=== PATIENT | female | born 1980 | race Caucasian/White ===

== ENCOUNTER 2017-11-08 12:26 | Emergency (ER) | payer BC ==
[2017-11-08 14:00] VITALS: BP 124/80
--- NOTE | 2017-11-08 14:31 | UC ---
Respiratory Complaint HPI - HPI Summary HPI Summary: 4 DAYS OF COUGH, CONGESTION GETTING WORSE. HAS ST AND PAIN WITH SWALLOWING. [place] SINCE YESTERDAY. FEELING TIRED AND ACHY. NO FEVER, N/V/D. H/O MS ON TECFIDERA. - History of Current Complaint Chief Complaint: UCRespiratory Stated Complaint: RESP ISSUE Time Seen by Provider: 11/08/17 14:13 Hx Obtained From: Patient Hx Last Menstrual Period: 10/13/2017 Onset/Duration: Gradual Onset, Lasting Days, Still Present Timing: Constant Severity Initially: Moderate Severity Currently: Moderate Pain Intensity: 3 Pain Scale Used: 0-10 Numeric Character: Cough: Productive - INTERMITTENTLY PRODUCTIVE Aggravating Factors: Nothing Alleviating Factors: Nothing Associated Signs And Symptoms: Positive: URI, Nasal Congestion. Negative: Dyspnea, Fever, Chills, Wheezing - Allergies/Home Medications Allergies/Adverse Reactions: Allergies Allergy/AdvReac Type Severity Reaction Status Date / Time prochlorperazine Allergy See Comment Verified 11/08/17 13:52 [From Compazine] Sulfa (Sulfonamide Allergy Hives Verified 11/08/17 13:52 Antibiotics) sulfamethoxazole Allergy Hives Verified 11/08/17 13:52 [From Septra] trimethobenzamide Allergy See Comment Verified 11/08/17 13:52 [From Tigan] trimethoprim [From Septra] Allergy Hives Verified 11/08/17 13:52 Home Medications: Home Medications diphenhydrAMINE HCl [Benadryl Allergy] 50 mg PO Q8HR PRN 11/08/17 [History Confirmed 11/08/17] guaiFENesin [Mucinex] 600 mg PO Q12HR 11/08/17 [History Confirmed 11/08/17] PMH/Surg Hx/FS Hx/Imm Hx Other Neurological History: MULTIPLE SCLEROSIS - Surgical History Surgical History: Yes Surgery Procedure, Year, and Place: 1995 BIG TOE TO REMOVE FOREIGN OBJECT, 2005 2 MOLES REMOVED FROM BACK, 2006 CYST REMOVED FROM GROIN, 09/29 LESION ON SCALP REMOVED OFFICE PROCEDURE - Family History Known Family History: Positive: Hypertension - Social History Alcohol Use: Weekly Alcohol Amount: 1-2 week Substance Use Type: None Smoking Status (MU): Current Some Day Smoker Type: Cigarettes Amount Used/How Often: 1 pack per month now Have You Smoked in the Last Year: Yes Household Exposure Type: Cigarettes - Immunization History Most Recent Influenza Vaccination: 2012 Most Recent Tetanus Shot: >5 yrs Review of Systems Constitutional: Fatigue ENT: Sore Throat, Nasal Discharge Respiratory: Cough Cardiovascular: Negative Gastrointestinal: Negative Musculoskeletal: Myalgia All Other Systems Reviewed And Are Negative: Yes Physical Exam Triage Information Reviewed: Yes Appearance: No Pain Distress, Well-Nourished, Ill-Appearing - APPEARS MILDLY ILL AND FATIGUED Vital Signs: Initial Vital Signs Temp 98.6 F 11/08/17 13:55 Pulse 103 11/08/17 13:55 Resp 18 11/08/17 13:55 BP 124/80 11/08/17 13:55 Pulse Ox 99 11/08/17 13:55 Vital Signs Reviewed: Yes Eyes: Positive: Conjunctiva Clear ENT: Positive: Hearing grossly normal, Pharyngeal erythema, Other - RIGHT TM DULL, ERYTHEMATOUS WITH SOME DEBRIS. LEFT TM NORMAL Neck: Positive: Supple, Nontender, No Lymphadenopathy Respiratory Exam: Normal Cardiovascular: Positive: Tachycardia Abdomen Description: Positive: Soft Musculoskeletal: Positive: No Edema Neurological: Positive: Alert Psychological: Positive: Age Appropriate Behavior Skin: Negative: rashes UC Diagnostic Evaluation - Laboratory O2 Sat by Pulse Oximetry: 99 Respiratory Course/Dx - Differential Dx/Diagnosis Provider Diagnoses: RIGHT AOM Discharge - Discharge Plan Condition: Stable Disposition: HOME Prescriptions: Amoxicillin PO (*) [Amoxicillin 500 MG CAP*] 1,000 mg PO Q12H #40 cap Benzonatate CAP* [Tessalon CAP*] 1 - 2 cap PO TID PRN #30 cap PRN Reason: Cough Patient Education Materials: Ear Infection (ED), Upper Respiratory Infection ( ED) Referrals: Galina Avendaño MD [Primary Care Provider] - If Needed Additional Instructions: STREP AND FLU BOTH NEGATIVE. ANTIBIOTICS FOR EAR INFECTION. FOLLOW-UP IF NOT IMPROVING EXPECTED.
== END 2017-11-08 15:10 | disposition home or self-care (01) ==
LOC: UCEAST 12:26
DX: H66.91 Otitis media, unspecified, right ear (principal); G35 Multiple sclerosis; Z88.2 Allergy status to sulfonamides; Z88.8 Allergy status to other drugs, medicaments and biological substances; Z72.0 Tobacco use
CPT/HCPCS: 87502; 87651; 99212; G0463

== ENCOUNTER 2019-01-03 17:30 | Emergency (ER) | payer BC ==
[2019-01-03 17:39] VITALS: BP 143/104
--- NOTE | 2019-01-03 18:15 | UC ---
Respiratory Complaint HPI - HPI Summary HPI Summary: uri sx for 5-6 days sinus pain for 2 days no fevers---nasal drainage and up at night coughing - History of Current Complaint Chief Complaint: UCRespiratory Stated Complaint: SORE THROAT Time Seen by Provider: 01/03/19 17:42 Hx Obtained From: Patient Hx Last Menstrual Period: spotting this week, IUD since September 2018 ?: No Onset/Duration: Gradual Onset, Lasting Days - 5, Still Present Timing: Constant Pain Intensity: 3 Pain Scale Used: 0-10 Numeric Character: Cough: Nonproductive Aggravating Factors: Recumbent Position Alleviating Factors: Nothing Associated Signs And Symptoms: Positive: URI, Nasal Congestion, Sinus Discomfort - Allergies/Home Medications Allergies/Adverse Reactions: Allergies Allergy/AdvReac Type Severity Reaction Status Date / Time prochlorperazine Allergy See Comment Verified 01/03/19 17:39 [From Compazine] Sulfa (Sulfonamide Allergy Hives Verified 01/03/19 17:39 Antibiotics) sulfamethoxazole Allergy Hives Verified 01/03/19 17:39 [From Septra] trimethobenzamide Allergy See Comment Verified 01/03/19 17:39 [From Tigan] trimethoprim [From Septra] Allergy Hives Verified 01/03/19 17:39 Home Medications: Home Medications Phentermine HCl [Adipex-P] 1 tab PO DAILY 01/03/19 [History Confirmed 01/03/19] metFORMIN* [Glucophage 500 MG TAB *] 1 tab PO DAILY 01/03/19 [History Confirmed 01/03/19] PMH/Surg Hx/FS Hx/Imm Hx Previously Healthy: No GI/ History: Gastroesophageal Reflux - Surgical History Surgical History: Yes Surgery Procedure, Year, and Place: 1995 BIG TOE TO REMOVE FOREIGN OBJECT, 2005 2 MOLES REMOVED FROM BACK, 2006 CYST REMOVED FROM GROIN, 09/29 LESION ON SCALP REMOVED OFFICE PROCEDURE - Family History Known Family History: Positive: Hypertension - Social History Occupation: Employed Full-time Lives: With Family Alcohol Use: Occasionally Alcohol Amount: 1-2 week Substance Use Type: None Smoking Status (MU): Current Some Day Smoker Type: Cigarettes Amount Used/How Often: 1 pack per month now Have You Smoked in the Last Year: Yes Household Exposure Type: Cigarettes - Immunization History Most Recent Influenza Vaccination: 2012 Most Recent Tetanus Shot: >5 yrs Review of Systems All Other Systems Reviewed And Are Negative: Yes Constitutional: Positive: Fatigue Skin: Positive: Negative Eyes: Positive: Negative ENT: Positive: Sore Throat, Nasal Discharge, Sinus Congestion, Sinus Pain/ Tenderness Respiratory: Positive: Cough Cardiovascular: Positive: Negative Gastrointestinal: Positive: Negative Genitourinary: Positive: Negative Motor: Positive: Negative Neurovascular: Positive: Negative Musculoskeletal: Positive: Negative Neurological: Positive: Headache Psychological: Positive: Negative Is Patient Immunocompromised?: No Physical Exam Triage Information Reviewed: Yes Appearance: No Pain Distress, Well-Nourished, Ill-Appearing Vital Signs: Initial Vital Signs Temp 98.2 F 01/03/19 17:36 Pulse 96 01/03/19 17:36 Resp 18 01/03/19 17:36 BP 143/104 01/03/19 17:36 Pulse Ox 100 01/03/19 17:36 Vital Signs Reviewed: Yes Eye Exam: Normal Eyes: Positive: Conjunctiva Clear ENT Exam: Normal ENT: Positive: Normal ENT inspection, Hearing grossly normal, Pharynx normal, Nasal congestion, Nasal drainage, TMs normal, Sinus tenderness, Uvula midline. Negative: Tonsillar swelling, Tonsillar exudate, Muffled voice, Hoarse voice, Dental tenderness Dental Exam: Normal Neck exam: Normal Neck: Positive: Supple, Nontender, No Lymphadenopathy Respiratory Exam: Normal Respiratory: Positive: Chest non-tender, Lungs clear, Normal breath sounds, No respiratory distress, No accessory muscle use Cardiovascular Exam: Normal Cardiovascular: Positive: RRR, No Murmur, Pulses Normal, Brisk Capillary Refill Musculoskeletal Exam: Normal Musculoskeletal: Positive: Strength Intact, ROM Intact, No Edema Neurological Exam: Normal Neurological: Positive: Alert, Muscle Tone Normal Psychological Exam: Normal Skin Exam: Normal Respiratory Course/Dx - Course Course Of Treatment: continue decongestant and mucolytic---if sinus pain continues for 4-5 more daysor worsens may start antibiodic---follow blood pressure with pcp - Differential Dx/Diagnosis Provider Diagnosis: Viral upper respiratory infection, Hypertension Discharge - Sign-Out/Discharge Documenting (check all that apply): Patient Departure All imaging exams completed and their final reports reviewed: No Studies - Discharge Plan Condition: Stable Disposition: HOME Prescriptions: Amoxicillin PO (*) [Amoxicillin 875 MG (*)] 875 mg PO BID #20 tab Benzonatate CAP* [Tessalon 100 MG CAP*] 100 mg PO QID PRN #40 cap PRN Reason: Cough Patient Education Materials: Upper Respiratory Infection (ED), Viral Syndrome ( ED), Hypertension (ED) Referrals: Galina Avendaño MD [Primary Care Provider] - 1 Week - Billing Disposition and Condition Condition: STABLE Disposition: Home
[2019-01-03] MEDS ORDERED: Benzonatate CAP* 100 MG PO ONE (18:26)
== END 2019-01-03 18:48 | disposition home or self-care (01) ==
LOC: UCEAST 17:30
DX: J06.9 Acute upper respiratory infection, unspecified (principal); I10 Essential (primary) hypertension; K21.9 Gastro-esophageal reflux disease without esophagitis; Z88.2 Allergy status to sulfonamides; Z88.8 Allergy status to other drugs, medicaments and biological substances; Z72.0 Tobacco use
CPT/HCPCS: 87651; 99212; A9270-GY; G0463

== ENCOUNTER 2019-11-11 08:50 | Emergency (ER) | payer BC ==
[2019-11-11 09:05] VITALS: BP 130/89
[2019-11-11] MEDS ORDERED: Albuterol 2.5 MG/3 ML NEB.SOL* (0.083%) INH ONE (09:25)
--- NOTE | 2019-11-11 09:31 | UC ---
Respiratory Complaint HPI - HPI Summary HPI Summary: PATIENT REPORTS HISTORY OF NON-ALLERGIC RHINITIS. FOR THE PAST ONE MONTH SHE HAS BEEN HAVING INTERMITTENT COUGH THAT SHE ATTRIBUTED TO POSTNASAL DRAINAGE FROM HER NON-ALLERGIC RHINITIS. NO FEVER, NO NAUSEA, NO BODY ACHES, NO SORE THROAT. HAS BEEN TAKING TESSALON WITH GOOD EFFECT HOWEVER 2 NIGHTS AGO THE COUGH WORSENED. SHE HAS BEEN UNABLE TO SLEEP DUE TO THE COUGHING FITS. DENIES ANY SHORTNESS OF BREATH. - History of Current Complaint Chief Complaint: UCGeneralIllness Stated Complaint: COUGH Time Seen by Provider: 11/11/19 09:13 Hx Obtained From: Patient Hx Last Menstrual Period: irreg. Onset/Duration: Gradual Onset, Lasting Weeks, Still Present Severity Initially: Moderate Severity Currently: Moderate Pain Intensity: 0 Pain Scale Used: 0-10 Numeric Character: Cough: Nonproductive Aggravating Factors: Nothing Alleviating Factors: Nothing Associated Signs And Symptoms: Negative: Dyspnea, Fever, Chills, Wheezing - Allergies/Home Medications Allergies/Adverse Reactions: Allergies Allergy/AdvReac Type Severity Reaction Status Date / Time prochlorperazine Allergy See Comment Verified 11/11/19 08:57 [From Compazine] Sulfa (Sulfonamide Allergy Hives Verified 11/11/19 08:57 Antibiotics) sulfamethoxazole Allergy Hives Verified 11/11/19 08:57 [From Septra] trimethobenzamide Allergy See Comment Verified 11/11/19 08:57 [From Tigan] trimethoprim [From Septra] Allergy Hives Verified 11/11/19 08:57 Home Medications: Home Medications Tecfidera Starter Pack 120 & 240 mg 240 mg PO BID 07/13/14 [History Confirmed ] Montelukast Sodium TAB* [Singulair 10 MG TAB*] 10 mg PO DAILY 10/05/15 [History Confirmed 11/11/19] guaiFENesin [Mucinex] 600 mg PO Q12HR 11/08/17 [History Confirmed 11/11/19] Benzonatate CAP* [Tessalon 100 MG CAP*] 100 mg PO QID PRN #40 cap 01/03/19 [Rx Confirmed 11/11/19] Phentermine HCl [Adipex-P] 1 tab PO DAILY 01/03/19 [History Confirmed 11/11/19] metFORMIN* [Glucophage 500 MG TAB *] 1 tab PO DAILY 01/03/19 [History Confirmed 11/11/19] Albuterol HFA INHALER* [Ventolin HFA Inhaler*] 2 puff INH Q4H PRN #1 mdi [Rx] Azithromycin 500 mg PO DAILY #5 tablet 11/11/19 [Rx] Benzonatate CAP* [Tessalon CAP*] 1 - 2 cap PO TID PRN #30 cap 11/11/19 [Rx] predniSONE 20 mg TAB [Deltasone 20 MG TAB*] 40 mg PO DAILY #10 tab 11/11/19 [Rx] PMH/Surg Hx/FS Hx/Imm Hx - Additional Past Medical History Additional PMH: MS, NON-ALLERGIC RHINITIS - Surgical History Surgical History: Yes Surgery Procedure, Year, and Place: 1995 BIG TOE TO REMOVE FOREIGN OBJECT, 2005 2 MOLES REMOVED FROM BACK, 2006 CYST REMOVED FROM GROIN, 09/29 LESION ON SCALP REMOVED OFFICE PROCEDURE - Family History Known Family History: Positive: Hypertension - Social History Alcohol Use: Occasionally Alcohol Amount: 1-2 week Substance Use Type: None Smoking Status (MU): Current Some Day Smoker Type: Cigarettes Amount Used/How Often: 1 pack per week Have You Smoked in the Last Year: Yes Household Exposure Type: Cigarettes - Immunization History Most Recent Influenza Vaccination: 2012 Most Recent Tetanus Shot: >5 yrs Review of Systems All Other Systems Reviewed And Are Negative: Yes Constitutional: Positive: Negative ENT: Positive: Nasal Discharge Respiratory: Positive: Cough. Negative: Shortness Of Breath Cardiovascular: Positive: Negative Gastrointestinal: Positive: Negative Physical Exam Triage Information Reviewed: Yes Appearance: Well-Appearing, No Pain Distress, Well-Nourished Vital Signs: Initial Vital Signs Temp 98.7 F 11/11/19 08:59 Pulse 95 11/11/19 08:59 Resp 18 11/11/19 08:59 BP 130/89 11/11/19 08:59 Pulse Ox 99 11/11/19 08:59 Vital Signs Reviewed: Yes Eyes: Positive: Conjunctiva Clear ENT: Positive: Hearing grossly normal, Pharynx normal, TMs normal Neck: Positive: Supple, Nontender, No Lymphadenopathy Respiratory Exam: Normal Cardiovascular Exam: Normal Abdomen Description: Positive: Soft Musculoskeletal: Positive: No Edema Neurological: Positive: Alert Psychological: Positive: Age Appropriate Behavior Skin: Negative: Rashes Diagnostics - Radiology CXR Radiology Interpretation Completed By: Radiologist Summary of Radiographic Findings: No evidence for pneumonia. No evidence for acute intrathoracic disease. Respiratory Course/Dx - Course Course Of Treatment: CHEST X-RAY TODAY UNREMARKABLE. PT FELT A BIT BETTER AFTER ALBUTEROL NEBULIZER. SHE MAY BE DEVELOPING AN UPPER RESPIRATORY INFECTION ON TOP OF HER CHRONIC RHINITIS. GIVEN HER LONG-STANDING SYMPTOMS WILL GO AHEAD AND PRESCRIBE ANTIBIOTIC FOR HER TO USE IF HER SYMPTOMS DO NOT IMPROVE OVER THE NEXT FEW DAYS. DISCUSSED POSSIBLE EVALUATION BY ENT VERSUS AN CP BLEACHER OPERATOR FOR HER CHRONIC RHINITIS. PREDNISONE FOR AIRWAY INFLAMMATION. TESSALON REFILLED. - Differential Dx/Diagnosis Provider Diagnosis: Acute bronchitis Discharge ED - Sign-Out/Discharge Documenting (check all that apply): Patient Departure All imaging exams completed and their final reports reviewed: Yes - Discharge Plan Condition: Stable Disposition: HOME Prescriptions: Albuterol HFA INHALER* [Ventolin HFA Inhaler*] 2 puff INH Q4H PRN #1 mdi PRN Reason: Shortness Of Breath Azithromycin 500 mg PO DAILY #5 tablet Benzonatate CAP* [Tessalon CAP*] 1 - 2 cap PO TID PRN #30 cap PRN Reason: Cough predniSONE 20 mg TAB [Deltasone 20 MG TAB*] 40 mg PO DAILY #10 tab Patient Education Materials: Acute Bronchitis (ED) Referrals: Galina Avendaño MD [Primary Care Provider] - If Needed Additional Instructions: CHEST XRAY TODAY UNREMARKABLE. YOUR SYMPTOMS MAY BE VIRALLY MEDIATED BUT GIVEN THE LENGTH OF TIME YOU HAVE BEEN ILL WE WILL COVER YOU WITH ANTIBIOTICS. TAKE THE MEDICINE FOR THE FULL COURSE. REST, HYDRATE, OTC MEDS NEEDED. WILL ALSO TREAT WITH PREDNISONE AND ALBUTEROL TO HELP WITH AIRWAY INFLAMMATION AND COUGH MEDICINE. SEEK FOLLOW-UP WITH YOUR PCP IF YOU ARE NOT IMPROVING OVER THE NEXT 1- 2 WEEKS. CONSIDER ENT OR CP BLEACHER OPERATOR FOR YOUR CHRONIC RHINITIS [facility] [place] [facility]. NG AND JANNY [address] [facility] [address] [phone] [facility] Address: [address], [place] [address] [facility] [address] [place] [address] [address] [place], [place] [address] - Billing Disposition and Condition Condition: STABLE Disposition: Home
== END 2019-11-11 10:50 | disposition home or self-care (01) ==
LOC: UCEAST 08:50
DX: J20.9 Acute bronchitis, unspecified (principal); R09.89 Other specified symptoms and signs involving the circulatory and respiratory systems; G35 Multiple sclerosis; F17.210 Nicotine dependence, cigarettes, uncomplicated; Z88.1 Allergy status to other antibiotic agents; Z88.2 Allergy status to sulfonamides; Z88.8 Allergy status to other drugs, medicaments and biological substances; Z79.899 Other long term (current) drug therapy
CPT/HCPCS: 71046; 99212; G0463